=== PATIENT | female | born 1990 | race Hispanic/Latino ===

== ENCOUNTER 2018-06-03 04:27 | Inpatient (IN) | payer SELFPAY ==
[~2018-06-03] VITALS: Ht 157.5 cm; Wt 121.9 kg
[2018-06-03] VITALS (12 sets, daily range): BP systolic 109–124; BP diastolic 60–80
[2018-06-03] MEDS ORDERED: SODIUM CHLORIDE 0.9% 1000ML 1,000 ML IV ONE ×2 (04:49→08:37)
[2018-06-03] MEDS ORDERED: ONDANSETRON HCL 4 MG/2 ML VIAL ONE ×2 (04:49→10:38)
[2018-06-03] MEDS ORDERED: MORPHINE SULFATE 4 MG/1ML SYG ONE (04:49)
[2018-06-03 05:04] LABS: CREATININE 0.7 mg/dL (0.5-1.5); POTASSIUM 3.7 mmol/L (3.5-5.1)
[2018-06-03 05:05] LABS: BASOPHILS % (AUTO) 0.2 % (0.0-5.0); EOSINOPHILS % (AUTO) 2.2 % (0.0-8.0); HEMATOCRIT 35.5 % (36-48); LYMPHOCYTES % (AUTO) 30.4 % (21.0-51.0); MEAN CORPUSCULAR HEMOGLOBIN 24.5 pg (27.0-33.0); MEAN CORPUSCULAR HGB CONC 32.1 g/dL (32.0-36.0); MEAN CORPUSCULAR VOLUME 76.4 fL (79-99); MONOCYTES % (AUTO) 7.6 % (3.0-13.0); NEUTROPHILS % (AUTO) 59.6 % (40.0-77.0); PLATELET COUNT (AUTO) 361 K/uL (130-400); RED BLOOD CELL COUNT(AUTO) 4.65 MIL/uL (4.00-5.50); RED CELL DISTRIBUTION WIDTH 16.3 % (11.0-15.5); WHITE BLOOD COUNT (AUTO) 9.7 K/uL (4.8-10.8)
[2018-06-03 05:08] LABS: ALBUMIN 3.2 g/dL (3.5-5.0); BILIRUBIN,TOTAL 0.2 mg/dL (0.2-1.0); TOTAL PROTEIN, SERUM 7.5 g/dL (6.0-8.3)
[2018-06-03 05:10] LABS: APPEARANCE,URINE Clear (CLEAR); BILIRUBIN,URINE Negative (NEGATIVE); COLOR,URINE Yellow (YELLOW); GLUCOSE, URINE (UA) Negative (NEGATIVE); KETONES,URINE Negative (NEGATIVE); LEUKOCYTE ESTERASE ,URINE Negative (NEGATIVE); NITRATE,URINE Negative (NEGATIVE); OCCULT BLOOD,URINE Negative (NEGATIVE); PH,URINE 6.5 (5.0-8.0); PROTEIN,URINE Negative (NEGATIVE)
[2018-06-03 05:12] LABS: HCG,QUAL RESULT NEGATIVE (NEGATIVE)
[2018-06-03] MEDS ORDERED: ZOSYN 3.375GM+NS 50ML 50 ML IV ONE (06:27)
[2018-06-03] MEDS ORDERED: SODIUM CHLORIDE 0.9% 1000ML 1,000 ML IV SCH (06:38)
[2018-06-03] MEDS ORDERED: HYDRALAZINE HCL 20 MG/ML VIAL IV PRN (06:45)
[2018-06-03] MEDS ORDERED: MORPHINE SULFATE 2 MG/ML 1ML SYG IV PRN (06:45)
[2018-06-03] MEDS ORDERED: MORPHINE SULFATE 4 MG/1ML SYG IV PRN ×2 (06:45→12:30)
[2018-06-03] MEDS: ENOXAPARIN SODIUM 40 MG/0.4 ML SYRINGE SQ SCH (09:00)
[2018-06-03] MEDS ORDERED: LACTATED RINGERS 1000ML 1,000 ML IV ONE (10:23)
[2018-06-03] MEDS ORDERED: LIDOCAINE PF 2% 5ML ABBOJECT ONE (10:38)
[2018-06-03] MEDS ORDERED: PROPOFOL 10 MG/ML 20ML VIAL IV ONE ×2 (10:38→11:55)
[2018-06-03] MEDS ORDERED: MIDAZOLAM HCL 1 MG/ML 2ML VIAL ONE (10:38)
[2018-06-03] MEDS ORDERED: ROCURONIUM 10MG/1ML SYR 10 MG/ML ML ONE (10:38)
[2018-06-03] MEDS ORDERED: SUCCINYLCHOLINE 200MG/10ML SYR ONE (10:38)
[2018-06-03] MEDS ORDERED: FENTANYL CITRATE PF 50 MCG/1 ML 5ML AMP IV ONE (10:41)
[2018-06-03] MEDS ORDERED: BUPIVACAINE/PF 0.5% 10ML VIAL ONE (11:03)
[2018-06-03] MEDS ORDERED: PHENYLEPHRINE HCL 10 MG/ML 1ML VIAL IV ONE (11:31)
[2018-06-03] MEDS ORDERED: GLYCOPYRROLATE 1 MG/5 ML SYRINGE ONE (11:34)
[2018-06-03] MEDS ORDERED: NEOSTIGMINE 5MG/5ML SYR IV ONE (11:34)
[2018-06-03] MEDS: LACTATED RINGERS 1000ML 1,000 ML IV SCH (12:24)
[2018-06-03] MEDS ORDERED: ONDANSETRON HCL 4 MG/2 ML VIAL IVP PRN (12:30)
[2018-06-03] MEDS ORDERED: MEPERIDINE-PF 25 MG/ML SYG ONE (12:42)
[2018-06-03] MEDS ORDERED: FENTANYL CITRATE PF 50 MCG/1 ML 2ML VIAL ONE (12:57)
[2018-06-03] MEDS: FAMOTIDINE/PF 20 MG/2 ML VIAL IV SCH ×2 (14:48→20:12)
[2018-06-03] MEDS: ZOSYN 3.375GM+NS 50ML 50 ML IV SCH ×2 (14:48→20:12)
[2018-06-03] MEDS: ACETAMINOPHEN-CODEINE 300/30MG TAB PO PRN (20:16)
[2018-06-04] VITALS: BP 116/69
[2018-06-04 04:00] VITALS: BP 111/71
[2018-06-04 04:53] LABS: HEMATOCRIT 32.6 % (36-48); MEAN CORPUSCULAR HEMOGLOBIN 24.3 pg (27.0-33.0); MEAN CORPUSCULAR HGB CONC 31.7 g/dL (32.0-36.0); MEAN CORPUSCULAR VOLUME 76.4 fL (79-99); MONOCYTES % (AUTO) 7.2 % (3.0-13.0); NEUTROPHILS % (AUTO) 80.8 % (40.0-77.0); PLATELET COUNT (AUTO) 330 K/uL (130-400); RED BLOOD CELL COUNT(AUTO) 4.26 MIL/uL (4.00-5.50); RED CELL DISTRIBUTION WIDTH 16.1 % (11.0-15.5); WHITE BLOOD COUNT (AUTO) 9.8 K/uL (4.8-10.8)
[2018-06-04 05:12] LABS: ALBUMIN 2.7 g/dL (3.5-5.0); BILIRUBIN,TOTAL 0.3 mg/dL (0.2-1.0); CREATININE 0.7 mg/dL (0.5-1.5); POTASSIUM 3.7 mmol/L (3.5-5.1); TOTAL PROTEIN, SERUM 6.6 g/dL (6.0-8.3)
[2018-06-04] MEDS: ZOSYN 3.375GM+NS 50ML 50 ML IV SCH ×2 (05:21→13:07)
[2018-06-04] MEDS: LACTATED RINGERS 1000ML 1,000 ML IV SCH (05:23)
[2018-06-04] MEDS: ACETAMINOPHEN-CODEINE 300/30MG TAB PO PRN (05:31)
[2018-06-04 07:00] VITALS: BP 114/71
[2018-06-04] MEDS: FAMOTIDINE/PF 20 MG/2 ML VIAL IV SCH (08:55)
[2018-06-04] MEDS: ENOXAPARIN SODIUM 40 MG/0.4 ML SYRINGE SQ SCH (08:56)
[2018-06-04] MEDS ORDERED: TYL3 PO (08:57)
[2018-06-04 11:00] VITALS: BP 110/53
[2018-06-04 15:55] VITALS: BP 115/77
== END 2018-06-04 19:30 | disposition home or self-care (01) | DRG 418 ==
LOC: EDH 04:27 → EDHIP 04:28 → 3BH 08:55
PROVIDERS: ADMIT Internal Medicine; ATTEND Internal Medicine
PROC: 0FT44ZZ Resection of Gallbladder, Percutaneous Endoscopic Approach (ICD-10-PCS; principal; 2018-06-03 10:50)
DX: K81.0 Acute cholecystitis (principal); Z68.42 Body mass index [BMI] 45.0-49.9, adult; K59.00 Constipation, unspecified; G47.00 Insomnia, unspecified; E86.1 Hypovolemia; K66.8 Other specified disorders of peritoneum; E66.9 Obesity, unspecified
CPT/HCPCS: 36415; 76705; 80053; 81003; 81025; 83605; 83690; 85025; 87040; 88304; J0330; J1650; J2001; J2175; J2250; J2270; J2370; J2405; J2543; J2704; J2710; J3010; J3490; J7030; J7120

== ENCOUNTER 2018-06-13 14:36 | Emergency (ER) | payer SELFPAY ==
[~2018-06-13 14:36] MED LIST: TYL3 PO
== END 2018-06-13 15:44 | disposition home or self-care (01) ==
LOC: EDH 14:36
DX: S31.119D Laceration without foreign body of abdominal wall, unspecified quadrant without penetration into peritoneal cavity, subsequent encounter (principal); X58.XXXD Exposure to other specified factors, subsequent encounter
CPT/HCPCS: 99281